=== PATIENT | female | born 1950 | race African-American/Black ===

== ENCOUNTER → 2017-05-07 | Outpatient (CLI) | payer MEDICARE, BC ==
[2016-02-20 14:30] VITALS: BP 147/79
--- NOTE | 2017-05-07 17:06 | KCIC ---
Bilateral digital screening mammograms: Reason for examination: Routine screening. Comparison is made to previous studies dated back to 04/06/2014. The skin and nipples show no abnormalities. No abnormal axillary lymph nodes are seen. The breast parenchyma shows scattered fibroglandular density. (Breast density: Category B.) There continues to be some parenchymal asymmetry in the 1:00 B position of the right breast which is unchanged. There is a new nodular density suggested medially in the left breast on CC view measuring 3.6 mm in size. Further evaluation with coned compression cc view, true lateral view and ultrasound is recommended. There are no other new dominant masses, suspicious calcifications or architectural distortions. Some benign calcifications are present. Impression: Small 3.6 mm nodular density in the medial left breast seen on cc view. Recommend further evaluation with additional cone compression views in CC and lateral projections and ultrasound examination. BI-RADS Category 0: Incomplete. Additional imaging is recommended. "Our facility is accredited by the [employer] Mammography [employer]." This patient's information has been entered into a reminder system for the patient to be notified with the results of her examination and a target date for the next mammogram. Electronically signed by: Dayana Davison MD (05/07/2017 5:03 PM)
== END | disposition home or self-care (01) ==
LOC: KCIC MAMMO 12:10
PROVIDERS: ATTEND Obstetrics & Gynecology
DX: Z12.31 Encounter for screening mammogram for malignant neoplasm of breast (principal)
CPT/HCPCS: G0202; 77067

== ENCOUNTER → 2017-05-31 | Outpatient (CLI) | payer MEDICARE, BC ==
[2016-02-20 14:30] VITALS: BP 147/79
--- NOTE | 2017-05-31 10:24 | RAD ---
DATE: 05/31/2017 EXAM: DIGITAL DIAGNOSTIC LT, BREAST LEFT HISTORY: Suspicious screening study COMPARISON: 05/07/2017 This study was interpreted with the benefit of Computerized Aided Detection (CAD). FINDINGS: Screening mammograms demonstrated a possible nodule on only the cc view projected just medial to the midline. A spot compression cc view of that region demonstrates heterogeneous fibroglandular tissues without evidence of a discrete mass. A straight mediolateral spot compression view of the central aspect of the breast shows no focal abnormality. Left breast ultrasound, 05/31/2017: A targeted ultrasound exam of the medial aspect left breast was performed. Normal heterogeneous fibroglandular shadows are present. No cystic or solid breast mass is seen. IMPRESSION: 1. Additional mammograms of the left breast do not demonstrate a nodule in the area of suspicion noted on one view of the screening exam. The appearance on the screening study was probably due to a summation shadow. 2. A targeted ultrasound exam of the medial aspect left breast also shows no abnormality. BI-RADS CATEGORY: 2 BENIGN FINDING(S) RECOMMENDED FOLLOW-UP: 12M 12 MONTH FOLLOW-UP PQRS compliance statement: Patient information was entered into a reminder system with a target due date for the next mammogram. Mammography is a sensitive method for finding small breast cancers, but it does not detect them all and is not a substitute for careful clinical examination. A negative mammogram does not negate a clinically suspicious finding and should not result in delay in biopsying a clinically suspicious abnormality. "Our facility is accredited by the [employer]ammography [employer]."
== END | disposition home or self-care (01) ==
LOC: KCIC MAMMO 08:53
PROVIDERS: ATTEND Obstetrics & Gynecology
DX: R92.8 Other abnormal and inconclusive findings on diagnostic imaging of breast (principal)
CPT/HCPCS: 76641; G0206; 77065

== ENCOUNTER 2017-12-02 09:48 | Emergency (ER) | payer MEDICARE, BC ==
[2017-12-02 10:49] LABS: ADD MAN DIFF? NO
[2017-12-02 10:54] LABS: BASO % 1 % (0-3); EOS # 0.1 x10^3/uL (0.0-0.7); EOS % 2 % (0-3); HEMATOCRIT 41.3 % (36.0-47.0); HEMOGLOBIN 13.9 g/dL (12.0-15.5); LYMPH # 1.3 x10^3/uL (1.0-4.8); LYMPH % 23 % (24-48); MEAN CORPUSCULAR HEMOGLOBIN 31 pg (25-35); MEAN CORPUSCULAR HGB CONC 34 g/dL (31-37); MEAN CORPUSCULAR VOLUME 92 fL (79-100); MONO # 0.6 x10^3/uL (0.0-1.1); MONO % 10 % (0-9); NEUT # 3.9 x10^3uL (1.8-7.7); NEUT % 65 % (31-73); PLATELET COUNT 206 x10^3/uL (140-400); RED CELL DISTRIBUTION WIDTH 12.7 % (11.5-14.5); WHITE BLOOD COUNT 5.9 x10^3/uL (4.0-11.0)
[2017-12-02 11:01] LABS: ANION GAP 11 (6-14); BLOOD UREA NITROGEN 12 mg/dL (7-20); BUN/CREATININE RATIO 10 (6-20); CALCIUM 8.5 mg/dL (8.5-10.1); CARBON DIOXIDE 28 mmol/L (21-32); CHLORIDE 99 mmol/L (98-107); CREATININE 1.2 mg/dL (0.6-1.0); GFR 54.6; GLUCOSE 89 mg/dL (70-99); POTASSIUM 3.4 mmol/L (3.5-5.1); SODIUM 138 mmol/L (136-145)
[2017-12-02 11:07] LABS: ALBUMIN 3.8 g/dL (3.4-5.0); ALBUMIN/GLOBULIN RATIO 0.9 (1.0-1.7); ALK PHOS 59 U/L (46-116); ALT (SGPT) 21 U/L (14-59); AST (SGOT) 23 U/L (15-37); TOTAL BILIRUBIN 0.3 mg/dL (0.2-1.0); TOTAL PROTEIN 7.9 g/dL (6.4-8.2)
[2017-12-02] MEDS: IV NORMAL SALINE 1000ML BAG 1,000 ML IV (11:08)
[2017-12-02 12:34] LABS: BILIRUBIN,URINE NEGATIVE (NEG); CLARITY,URINE CLEAR; COLOR,URINE YELLOW; GLUCOSE,URINE NEGATIVE (NEG); NITRITE,URINE NEGATIVE (NEG); PROTEIN,URINE NEGATIVE (NEG-TRACE); UROBILINOGEN,URINE 0.2 mg/dL (0.2 mg/dL)
[2017-12-02 12:44] LABS: BACTERIA,URINE 0 /HPF (0-FEW); SQUAMOUS EPITHELIAL CELL,UR FEW /LPF; WBC,URINE 0 /HPF (0-4)
== END 2017-12-02 13:31 | disposition home or self-care (01) ==
LOC: ER 09:48
DX: J40 Bronchitis, not specified as acute or chronic (principal); K21.9 Gastro-esophageal reflux disease without esophagitis
CPT/HCPCS: 36415; 71046; 80053; 81001; 85025; 96360; 96361; 99285-25; J7030

== ENCOUNTER → 2018-06-07 | Outpatient (CLI) | payer MEDICARE, BC | END | disposition home or self-care (01) | LOC: KCIC MAMMO 11:11 | DX: Z12.31 Encounter for screening mammogram for malignant neoplasm of breast (principal); K21.9 Gastro-esophageal reflux disease without esophagitis | CPT/HCPCS: 77063; 77067 ==

== ENCOUNTER → 2019-07-08 | Outpatient (CLI) | payer MEDICARE, BC ==
[2017-12-02 09:50] VITALS: BP 177/86
--- NOTE | 2019-07-08 17:37 | KCIC ---
Bilateral digital screening mammograms with 3-D tomosynthesis: Reason for examination: Routine screening. Comparison is made to previous studies dated 06/07/2018 and 05/07/2017. Bilateral mammograms in CC and oblique projections were obtained with 2-D imaging and 3-D tomosynthesis imaging on a Siemens Inspiration unit and reviewed on the workstation. Interpretation was made with the benefit of CAD. The skin and nipples show no abnormalities. No abnormal axillary lymph nodes are seen. The breast parenchyma is heterogeneously dense. (Breast density: Category C.) There are no new dominant masses, suspicious calcifications or architectural distortion. Benign calcifications are present. Impression: No evidence of malignancy. Recommend routine screening. Your patient's mammogram demonstrates that she has dense breast tissue (breast density category C or D), which could hide abnormalities, and if she has other risk factors for breast cancer that have been identified, she might benefit from supplemental screening tests that may be suggested by you as her ordering physician. Dense breast tissue, in and of itself, is a relatively common condition. Therefore, this information is not provided to cause undue concern, but rather to raise your awareness and to promote discussion with your patient regarding the presence of other risk factors, in addition to dense breast tissue. Your patient's mammography results will be sent to her. BI-RAD Category 2: Benign. "Our facility is accredited by the [employer] Mammography [employer]." This patient's information has been entered into a reminder system for the patient to be notified with the results of her examination and a target date for the next mammogram. Electronically signed by: Dayana Davison MD (07/08/2019 5:34 PM) [id number]
== END | disposition home or self-care (01) ==
LOC: KCIC MAMMO 12:20
PROVIDERS: ATTEND Internal Medicine
DX: Z12.31 Encounter for screening mammogram for malignant neoplasm of breast (principal); N64.89 Other specified disorders of breast
CPT/HCPCS: 77063; 77067

== ENCOUNTER → 2020-07-12 | Outpatient (CLI) | payer MEDICARE, BC ==
[2017-12-02 09:50] VITALS: BP 177/86
--- NOTE | 2020-07-12 11:27 | KCIC ---
Bilateral digital screening mammograms with 3-D tomosynthesis: Reason for examination: Routine screening. Comparison is made to previous studies dated back to 04/05/2016. Bilateral mammograms in CC and oblique projections were obtained with 2-D imaging and 3-D tomosynthesis imaging on a Siemens Inspiration unit and reviewed on the workstation. Interpretation was made with the benefit of CAD. The skin and nipples show no abnormalities. No abnormal axillary lymph nodes are seen. The breast parenchyma is heterogeneously dense. (Breast density: Category C.) There is a small calcifying nodule consistent with a degenerating fibroadenoma in the left breast. There continues to be a small 5.8 mm nodular parenchymal density laterally in the right breast which can be further evaluated with ultrasound. There is also subtle area of nodularity anterior medially in the right breast seen on cc view measuring approximately 6 mm in size and is located approximately 3.7 cm posterior to the nipple. Masses, suspicious calcifications or architectural distortion. Benign calcifications are present. Impression: Small nodular parenchymal density laterally in the right breast approximately 5.5 cm from the nipple measuring 5.8 mm in size. Small nodule medially in the right breast on cc view 3.7 cm from the nipple measuring approximately 6 mm in size. Recommend further evaluation with ultrasound. Your patient's mammogram demonstrates that she has dense breast tissue (breast density category C or D), which could hide abnormalities, and if she has other risk factors for breast cancer that have been identified, she might benefit from supplemental screening tests that may be suggested by you as her ordering physician. Dense breast tissue, in and of itself, is a relatively common condition. Therefore, this information is not provided to cause undue concern, but rather to raise your awareness and to promote discussion with your patient regarding the presence of other risk factors, in addition to dense breast tissue. Your patient's mammography results will be sent to her. BI-RAD Category 0: Incomplete. Needs additional imaging evaluation. "Our facility is accredited by the [employer] Mammography Program." This patient's information has been entered into a reminder system for the patient to be notified with the results of her examination and a target date for the next mammogram. Electronically signed by: Dayana Davison MD (07/12/2020 11:24 AM) [facility]
== END | disposition home or self-care (01) ==
LOC: KCIC MAMMO 10:10
PROVIDERS: ATTEND Internal Medicine
DX: Z12.31 Encounter for screening mammogram for malignant neoplasm of breast (principal); N64.89 Other specified disorders of breast
CPT/HCPCS: 77063; 77067

== ENCOUNTER → 2020-08-04 | Outpatient (CLI) | payer MEDICARE, BC ==
[2017-12-02 09:50] VITALS: BP 177/86
--- NOTE | 2020-08-04 09:16 | KCIC ---
EXAM: Right breast sonogram. HISTORY: 69-year-old female presents for evaluation of nodularity within the right breast demonstrated on a mammogram dated 07/12/2020. TECHNIQUE: Sonographic imaging of the right breast including all 4 quadrants and the retroareolar region was performed. COMPARISON: 07/12/2020. FINDINGS: There is a suspicious hypoechoic mass with irregular and indistinct margins at the 5:00 position 2 cm from the nipple measuring 5.3 mm in maximum dimension. This may correspond with nodularity in this location demonstrated on the prior screening mammogram. There is an oval hypoechoic lesion with internal echoes at the 10:00 position 4 cm from the nipple measuring 6.4 mm, the appearance of which favors a benign fibrocystic etiology. This likely corresponds with nodularity in this location on the prior mammogram. There is no suspicious axillary lymph node. IMPRESSION: 1. 5.3 mm suspicious nodule within the 5:00 position of the right breast 2 cm from the nipple. Sonographic guided biopsy is recommended. 2. 6.4 and suspected benign fibrocystic lesion at the 10:00 position of the right breast 4 cm from the nipple. Six-month follow-up is recommended to confirm stability. 3. BI-RADS Category 4: Suspicious abnormality. Sonographic guided biopsy of the finding at the 5:00 position is recommended. These findings and recommendations were discussed with the patient and Alpesh in the referring physician office at 0910 hours on 08/04/2020. Electronically signed by: Fe Ordonez MD (08/04/2020 9:13 AM) [email or web address]
== END | disposition home or self-care (01) ==
LOC: KCIC US 08:08
PROVIDERS: ATTEND Internal Medicine
DX: R92.8 Other abnormal and inconclusive findings on diagnostic imaging of breast (principal); N63.14 Unspecified lump in the right breast, lower inner quadrant
CPT/HCPCS: 76641

== ENCOUNTER → 2020-08-11 | Outpatient (CLI) | payer MEDICARE, BC ==
[2017-12-02 09:50] VITALS: BP 177/86
--- NOTE | 2020-08-12 17:48 | RAD ---
Examination: US GUID NDL PLACE/ASPI/BX, DIGITAL DIAGNOSTIC RT History: Reason: Right Breast Biopsy; Right Breast Mass / Comparison/Correlation: None Findings: Risks, benefits, and alternatives regarding right breast 5:00 region mass ultrasound-guided core biopsy were discussed with the patient and informed consent was obtained. Cleansing with ChloraPrep at the anticipated site of needle placement was performed. Sterile draping, sterile gel, and sterile probe cover is were utilized. Approximately 8 of 1 percent lidocaine was administered subcutaneously and along the expected course of the needle tracks. Lateral approach was utilized. 14-gauge core biopsy needle was utilized. Scalpel incision was made. Introducer was placed. A total of 10 passes were made into the mass. Most of the specimens were fairly small and friable. The marker was then placed under ultrasound guidance strandy changes into the region of the mass. Mediolateral and CC images of the right breast acquired after a clip marker placement demonstrate the clip marker at the expected 5:00 region. No hematoma identified. Impression: Successful right breast mass core biopsy. Specimens sent to lab. The patient tolerated procedure well without immediate complications. Electronically signed by: Aubrey Cain MD (08/12/2020 5:45 PM) [email or web address]
--- NOTE | 2020-08-12 18:06 | PATHOLOGY ---
[facility] Accession Number: [id number] . 01 Material submitted: . breast - RIGHT BREAST, 500, 2CMFN. Modifiers: right, 5:00 . 01 Clinical history: . ABNORMAL RIGHT MAMMOGRAM, RIGHT BREAST MASS . 02 Diagnosis: Breast tissue, right breast mass 5:00 needle biopsies: - Focal mild stromal fibrosis and recent hemorrhage. ([facility] 08/12/2020) [facility] 08/12/2020 1557 Local . 02 Comment: Sections of the right breast mass at 5:00 needle biopsy reveal predominantly fatty breast tissue. There are a few small foci showing breast ducts with associated mild stromal fibrosis. There are a few breast lobules present. There are foci of recent hemorrhage. There is no atypia or evidence of malignancy. I am uncertain as to whether the findings are plastic products sales representative of the mammographic lesion. Correlate clinically. ([facility] 08/12/2020) . 02 Electronically signed: . Lyle Cornell MD, Pathologist NPI- [id number] . 01 Gross description: . The specimen is received in formalin, labeled "Opal Lizama, right breast 5:00 2 cm from nipple". Received are multiple needle cores of fibrofatty tissue measuring 1.2 x 1.0 x 0.2 cm in aggregate dimensions. The specimen is submitted entirely in cassettes A1 through A3. The cold ischemic time is 2 minutes. The total formalin fixation time is 9 hours and 30 minutes. ([facility]; 08/11/2020) [facility] 08/11/2020 1739 Local . 02 Pathologist provided ICD-10: N60.31 . 02 CPT . 204793 Specimen Comment: A courtesy copy of this report has been sent to [phone], [phone] Specimen Comment: [id number] Specimen Comment: Report sent to / DR LEBLANC Performed at: [address], [place] [id number] MD Sumeet Taylor MD Phone: [phone] Performed at: [facility] [address] [place], [place] [id number] MD Lyle Cornell MD Phone: [phone]
== END | disposition home or self-care (01) ==
LOC: US 12:42
PROVIDERS: ATTEND Internal Medicine
DX: R92.8 Other abnormal and inconclusive findings on diagnostic imaging of breast (principal); K21.9 Gastro-esophageal reflux disease without esophagitis; Z79.899 Other long term (current) drug therapy
CPT/HCPCS: 19083; 77065; 88305; C1713; 19081; 76942

== ENCOUNTER → 2021-10-19 | Outpatient (CLI) | payer MEDICARE, BC ==
[2017-12-02 09:50] VITALS: BP 177/86
--- NOTE | 2021-10-19 12:37 | KCIC ---
INDICATION: Screening for osteopenia/osteoporosis. Reason: ESTROGEN DEFICIENCY / Spl. Instructions: / History: COMPARISON: None. TECHNIQUE: Bone densitometry was performed through the lumbar spine and proximal femur. IMPRESSION: Lumbar Spine: BMD: 0.86 T-Score: -1.7 Range: Osteopenic Proximal Femur: BMD: 0.7 T-Score: -1.9 Range: Osteopenic World Health Organization Criteria for Bone Density: T-Score: > -1.0: Normal Range < -1.0 to -2.5: Osteopenic Range < -2.5: Osteoporotic Range Electronically signed by: Ebenezer Pereyra MD (10/19/2021 12:34 PM) [id number]
--- NOTE | 2021-10-20 14:17 | KCIC ---
Bilateral digital screening mammograms with 3-D tomosynthesis: Reason for examination: Routine screening. Comparison is made to previous studies dated back to 04/06/2015. Bilateral mammograms in CC and oblique projections were obtained with 2-D imaging and 3-D tomosynthes is imaging on a Siemens Inspiration unit and reviewed on the workstation. Interpretation was made wit h the benefit of CAD. The skin and nipples show no abnormalities. No abnormal axillary lymph nodes are seen. The breast par enchyma shows scattered fatty and fibroglandular density. (Breast density: Category B.) There are no dominant masses, suspicious calcifications or architectural distortion. Benign calcifications are pre sent. Biopsy clip remains present on the right. Impression: No evidence of malignancy. Recommend routine screening. BI-RAD Category 2: Benign. "Our facility is accredited by the [employer] Mammography Program." This patient's information has been entered into a reminder system for the patient to be notified wit h the results of her examination and a target date for the next mammogram. Electronically signed by: Dayana Davison MD (10/20/2021 2:14 PM) [email or web address]
== END ==
LOC: KCIC MAMMO 10:41
PROVIDERS: ATTEND Internal Medicine
DX: Z12.31 Encounter for screening mammogram for malignant neoplasm of breast (principal); M85.89 Other specified disorders of bone density and structure, multiple sites; E28.39 Other primary ovarian failure
CPT/HCPCS: 77063; 77067; 77080